=== PATIENT | male | born 1980 | race Two or more races ===

== ENCOUNTER 2016-09-23 21:35 | Emergency (ER) | payer SELFPAY ==
[~2016-09-23] VITALS: Ht 172.7 cm; Wt 86.2 kg
[2016-09-23] MEDS ORDERED: LORazepam 1mg tab ORAL ONE (22:00)
[2016-09-24 00:34] VITALS: BP 126/94
[2016-09-24 00:36] VITALS: BP 126/94
--- NOTE | 2016-09-24 04:16 | Emergency Room Report ---
History of Present Illness General Chief Complaint: General Complaint Source: EMS Present Illness HPI 36-year-old male presents ED for evaluation. Per EMS patient ingested a marijuana brownie today shortly thereafter became very anxious. Mother called 911. Per EMS patient is initially tachycardic. Patient states he feels very anxious. admits. to marijuana use. Denies any other drug use. Denies voices. Denies any suicidal homicidal ideation. No other aggravating or relieving factors. Denies any other associated symptoms Allergies: Coded Allergies: No Known Allergies (Unverified , 09/23/16) Patient History Past Medical History: none Past Surgical History: none Pertinent Family History: none Social History: Denies: alcohol use, drug use, smoking Immunizations: UTD Reviewed Nursing Documentation: PMH: Agreed, PSxH: Agreed Nursing Documentation-PMH Past Medical History: No Stated History Review of Systems All Other Systems: negative except mentioned in HPI Physical Exam Vital Signs Date Time Temp Pulse Resp B/P Pulse Ox O2 Delivery O2 Flow Rate FiO2 09/23/16 21:31 97.7 135 16 152/90 100 Room Air Sp02 EP Interpretation: reviewed, normal General Appearance: no apparent distress, alert, GCS 15, non-toxic Head: normocephalic, atraumatic Eyes: bilateral eye PERRL, bilateral eye normal inspection ENT: hearing grossly normal, normal pharynx, no angioedema, normal voice Neck: full range of motion, supple/symm/no masses Respiratory: chest non-tender, lungs clear, normal breath sounds, speaking full sentences Cardiovascular #1: regular rate, rhythm, no edema Cardiovascular #2: 2+ carotid (R), 2+ carotid (L), 2+ radial (R), 2+ radial (L) , 2+ dorsalis pedis (R), 2+ dorsalis pedis (L) Gastrointestinal: normal bowel sounds, non tender, soft, non-distended, no guarding, no rebound Rectal: deferred Genitourinary: normal inspection, no CVA tenderness Musculoskeletal: back normal, gait/station normal, normal range of motion, non- tender Neurologic: alert, oriented x3, responsive, motor strength/tone normal, sensory intact, speech normal Psychiatric: judgement/insight normal, memory normal, no suicidal/homicidal ideation, anxious Reflexes: 3+ bicep (R), 3+ bicep (L), 3+ tricep (R), 3+ tricep (L), 3+ knee (R) , 3+ knee (L) Skin: normal color, no rash, warm/dry, well hydrated Lymphatic: no adenopathy Medical Decision Making Diagnostic Impression: Primary Impression: Substance abuse Additional Impression: Anxiety ER Course 36-year-old male presents ED feeling anxious, tachycardic after ingesting marijuana brownie Differential-anxiety, psychosis, overdose Patient placed on stretcher. After initial history physical exam reveals a male in no acute distress. Patient appears anxious however in no signs of SI or HI. Not danger to himself or others. Remainder physical exam unremarkable Patient given Ativan and allowed to rest. On reassessment patient feels better wishes to be discharged Diagnoses-substance abuse, anxiety Stable and discharged to home. Followup with PMD. Return to ED if symptoms recur or worsen Last Vital Signs Date Time Temp Pulse Resp B/P Pulse Ox O2 Delivery O2 Flow Rate FiO2 09/24/16 00:36 97.7 120 16 126/94 100 Room Air Status: improved Disposition: HOME, SELF-CARE Condition: Stable Patient Instructions: Substance Use Disorder HADLEY KNUTSON M.D. Sep 24, 2016 04:16
== END 2016-09-24 00:36 | disposition home or self-care (01) ==
LOC: EDBD 21:35 → EMR 22:09
DX: F41.9 Anxiety disorder, unspecified (principal); F12.10 Cannabis abuse, uncomplicated
CPT/HCPCS: 99283